=== PATIENT | female | born 1985 | race African-American/Black ===

== ENCOUNTER → 2019-12-04 | Outpatient (CLI) | payer OTHER ==
[2015-07-14 00:56] VITALS: BP 128/64
[2019-12-04 07:58] LABS: HEMATOCRIT 39.4 % (36.0-47.0); HEMOGLOBIN 13.1 g/dL (12.0-15.5); RED BLOOD COUNT 4.26 x10^6/uL (3.50-5.40); RED CELL DISTRIBUTION WIDTH 12.7 % (11.5-14.5); WHITE BLOOD COUNT 6.7 x10^3/uL (4.0-11.0)
[2019-12-04 08:31] LABS: ALBUMIN 3.6 g/dL (3.4-5.0); CALCIUM 8.8 mg/dL (8.5-10.1); CREATININE 0.9 mg/dL (0.6-1.0); GFR 85.7; POTASSIUM 3.7 mmol/L (3.5-5.1); TOTAL BILIRUBIN 0.6 mg/dL (0.2-1.0); TOTAL PROTEIN 7.2 g/dL (6.4-8.2)
[2019-12-04 08:32] LABS: CHOLESTEROL/HDL RATIO 2.8
[2019-12-04 08:47] LABS: FREE T4 0.99 ng/dL (0.76-1.46); THYROID STIM HORMONE (TSH) 1.663 uIU/mL (0.358-3.74)
== END | disposition home or self-care (01) ==
LOC: LAB 07:35
PROVIDERS: ATTEND Nurse Practitioner Family
DX: R07.9 Chest pain, unspecified (principal)
CPT/HCPCS: 36415; 80053; 80061; 82306; 83540; 83550; 84439; 84443; 85027

== ENCOUNTER → 2020-04-22 | Outpatient (CLI) | payer OTHER ==
[2015-07-14 00:56] VITALS: BP 128/64
--- NOTE | 2020-04-22 16:37 | RAD ---
INDICATION: 35 year-old female presents for follow-up of previously seen probably benign breast lesions. TECHNIQUE: Targeted high resolution sonography of the region of clinical concern was performed. COMPARISON: None FINDINGS: ULTRASOUND FINDINGS: Targeted ultrasound of the previously described probably benign finding was again performed. 9:00 position, 6 cm from the nipple: A 0.4 x 0.3 x 0.2 cm hypoechoic solid mass around/oval shape is seen. The previously seen 9:00 lesion 10 cm from the nipple is not definitively seen on this examination. 12:00 position, 1 cm from the nipple: A hypoechoic mass of circumscribed margins and round/oval shape is present, measuring 1.5 x 0.6 x 1.4 cm. This demonstrates internal homogenous echogenicity with a few small septations. This is similar in appearance to the mass seen on prior examination which was described at the 12:00 position, 10 cm from the nipple, which previously measured 1.5 x 0.5 x 1.4 cm. IMPRESSION: Probably benign finding. RECOMMENDATION: Recommend 12 month ultrasound and mammographic follow-up. BI-RADS 3: Probably Benign Electronically signed by: Carlos Enrique Christianson MD (04/22/2020 4:34 PM) [email or web address]
== END | disposition home or self-care (01) ==
LOC: US 14:42
PROVIDERS: ATTEND Nurse Practitioner Family
DX: N63.22 Unspecified lump in the left breast, upper inner quadrant (principal)
CPT/HCPCS: 76641

== ENCOUNTER → 2021-05-12 | Outpatient (CLI) | payer OTHER ==
[2015-07-14 00:56] VITALS: BP 128/64
--- NOTE | 2021-05-12 10:28 | RAD ---
PROCEDURE: MG DIGITAL BILAT DIAGNOSTIC MAMMO WITH DIMITRI, US BREAST BILAT HISTORY: The patient is 36 years old and is seen for Reason: lumpy breast / Spl. Instructions: / His tory: . COMPARISON: Ultrasound April 22, 2020 and September 11, 2019 as well as February 05, 2019. Mammogram May 30, 2018 TECHNIQUE: CC and MLO views of both breasts were obtained. Images were processed by the [employer] computer-aided detection system. Ultrasound the bilateral breasts. DENSITY: The breast parenchyma is extremely dense, which could obscure a lesion on mammography. FINDINGS: Left mammogram: Increased left upper outer breast mass measures 2.5 x 1.6 cm compared to 1.2 x 1.5 cm . Decreased medial breast mass measures 0.8 cm compared to 1.4 cm. Left ultrasound: Solid hypoechoic lesion within the left breast 9:00 position 4 cm from the nipple me asures 0.9 x 0.5 x 0.2 cm, similar compared to prior and decreased compared to 2019. Increased multil obulated solid and new cystic mass 12-1 position 3 cm from the nipple measures 2.8 x 1.2 cm compared to 1.5 x 0.6 cm previously. Finding may relate to interval fibroid cystic degeneration, given signifi cant increased size further evaluation was recommended. No pathologic axillary lymphadenopathy. Right mammogram: Asymmetry within the superior breast on MLO view, likely overlapping fibroglandular tissue as no correlate identified on ultrasound. No suspicious macrocalcification or architectural di stortion. Right ultrasound: No mass or cyst identified. No pathologic axillary lymphadenopathy. IMPRESSION: Increased lobulated cystic and solid mass within the left breast. Recommend ultrasound-guided biopsy. Results were discussed with the patient at length. Options for 6 month follow-up and biopsy were prov ided and risks and benefits were discussed. The patient stated she would rather biopsy the lesion at this point. The patient agreed with the plan. BI-RADS category 4 Findings suspicious for malignancy Our clinic nurse has been instructed to assist with communicating findings and recommendations to the patient's referring physician and in scheduling follow-up. Patient entered into a reminder system for annual screening mammogram. FOR INTERNAL CODING PURPOSES Critical result: Findings discussed with Paige Armstrong at 05/12/2021 10:15 AM. RESULT CODE: (C) Electronically signed by: Ishaan Solano DO (05/12/2021 10:25 AM) [email or web address]
== END ==
LOC: MAMMO 08:43
PROVIDERS: ATTEND Nurse Practitioner Family
DX: N60.02 Solitary cyst of left breast (principal); N63.20 Unspecified lump in the left breast, unspecified quadrant
CPT/HCPCS: 76641; 77066; G0279; 77062

== ENCOUNTER 2021-06-08 08:54 | Day surgery (SDC) | payer OTHER ==
[~2021-06-08] VITALS: Ht 154.9 cm; Wt 46.2 kg
[~2021-06-08 08:54] MED LIST: CHOL500050 PO; HYDROmorphone 2 MG/ML VIAL IVP PRN; IV RINGERS,LACTATED 1000ML 1,000 ML IV SCH; MORPHINE SULFATE 2 MG/ML INJ. IVP PRN; MULT-121 PO; PROCHLORPERAZINE 10 MG/2 ML VIAL. IVP PRN; ceFAZolin SODIUM IV Push 1 GM VIAL. IVP PRN; fentaNYL PF VIAL 100 MCG/2 ML VIAL IVP PRN
[2021-06-08] MEDS ORDERED: SEVOFLURANE 31 TO 60 MINUTES. IH ONE (09:16)
[2021-06-08] MEDS ORDERED: KETOROLAC 30 MG/ML VIAL. ONE (09:17)
[2021-06-08] MEDS ORDERED: MIDAZOLAM HCL/PF 2 MG/2 ML VIAL. ONE (09:17)
[2021-06-08] MEDS ORDERED: PROPOFOL 10 MG/ML (20ML) VIAL. IV ONE (09:17)
[2021-06-08] MEDS ORDERED: DEXAMETHASONE SOD PHOS 4 MG/ML VIAL ONE ×2 (09:17)
[2021-06-08] MEDS ORDERED: ONDANSETRON PF 4 MG/2 ML VIAL. ONE (09:17)
[2021-06-08] MEDS ORDERED: LIDOCAINE 2% PF 5 ML VIAL. ONE (09:18)
[2021-06-08 09:35] VITALS: BP 123/76
[2021-06-08] MEDS ORDERED: ACETAMINOPHEN 650 MG/20.3 ML SOLUTION. PO ONE (10:00)
[2021-06-08] MEDS ORDERED: BUPIVACAINE-EPI 0.25%-1:200000 MPF 30 ML VIAL. ONE (10:16)
--- NOTE | 2021-06-08 11:10 | PDOC4 ---
Operative Note Operative Note Date: June 08, 2021 1108 Preoperative diagnosis: Left breast mass Postoperative diagnosis: Same Procedure: Excisional biopsy of left breast mass Surgeon: Thierry Dictation: Patient is a 36-year-old female with a palpable mass in her left breast ultrasound shows abnormal architecture concerning recommending biopsy. Procedure of excisional biopsy was explained to the patient detail was benefits were also discussed including bleeding infection alternatives to this procedure also discussed with the patient who seemed to understand and gave a verbal written consent to have the procedure performed. Patient was taken to the operating room placed in the supine position general anesthesia was initiated on ce patient was sleeping intubated her left breast and chest were prepped and draped usual sterile fashion using ChloraPrep. Area over the mass was injected with quarter percent Marcaine with epinephrine incision made with a 10 blade scalpel is carried down through subcutaneous tissue using electrocautery right hemostasis mass was excised with electrocautery was noted there is quite a bit fluid expressed milky and consistency. Wound was closed in 2 layers of deep layer running 3-0 Vicryl and the skin was reapproximated for subcuticular Monocryl Mastisol Steri-Strips and island dressings were applied. Patient was awakened and extubated in the operating room taken to recovery in stable condition all sponge instrument needle counts listed as correct estimated blood loss 10 mL CANDACE PEREZ MD Jun 08, 2021 11:10
[2021-06-08] MEDS ORDERED: OXYC1TAB15 PO (11:16)
--- NOTE | 2021-06-08 11:19 | DISCH ---
DISCHARGE INSTRUCTIONS Condition on Discharge Condition on Discharge: Stable Activity After Discharge Activity Instructions for Disc: Avoid exertion Diet after Discharge Diet after Discharge: Regular Contacting the DRMatias after DC Call your doctor for: If your condition worsens Follow-Up Follow up with: Dr. Perez in 2 weeks CANDACE PEREZ MD Jun 08, 2021 11:19
[2021-06-08 11:46] VITALS: BP 114/70
--- NOTE | 2021-06-09 18:06 | PATHOLOGY ---
[facility] Accession Number: [id number] . 01 Material submitted: . breast - LEFT BREAST MASS. Modifiers: left . 01 Clinical history: . LEFT BREAST MASS EXCISIONAL BIOPSY LEFT BREAST LEFT BREAST LUMP . 02 Diagnosis: Segments (2) of breast tissue, left breast excisional biopsy: - Intraductal papilloma, with focal associated lobular secretory alteration and focal chronic inflammation. - Fibrocystic changes with the following components: - Stromal fibrosis. - Duct ectasia. - Cystic change. - Lobular secretory alteration, focal. - Chronic inflammation, focal. (DARWINM:fan; 06/09/2021) [facility] 06/09/2021 1722 Local . 02 Comment: There is no atypia or evidence of malignancy. (DARWINM:fan; 06/09/2021) . 02 Electronically signed: . Ulices Castillo MD, Pathologist NPI- [id number] . 01 Gross description: . The specimen is received in formalin, labeled "Smart, [place] L and breast mass". It consists of 2 lerner-yellow, regular fibroadipose soft tissue segments weighing 1 g and measuring 1.9 x 1.8 x 1.1 cm, and 4 g and measuring 2.7 x 2.4 x 1.5 cm. The smaller fragment is inked orange and the larger fragment is inked green. Sectioning reveals lerner-white fibrous, focally cystic cut surfaces. The specimen is 5% yellow fatty tissue and 95% white fibrous tissue. The specimen is entirely submitted as follows: A1-A2: Smaller fragment, entirely submitted A3: Larger fragment, one end, perpendicularly sectioned A4-A7: Larger fragment, mid sections A8: Larger fragment, opposite end, perpendicularly sectioned . The specimen is removed from the patient at 1030AM and placed in formalin at 1040AM on 06/08/2021. The specimen is removed from formalin at 1140pm on 06/08/2021. The specimen is in formalin for greater than 6 hours and less than 72 hours. (MRF; 06/08/2021) MFE/MFE 06/08/2021 1605 Local . 02 Pathologist provided ICD-10: D24.2, N60.32, N60.42, N61.0 . 02 CPT . 469528 Specimen Comment: A courtesy copy of this report has been sent to [phone], [phone] Specimen Comment: [id number] Specimen Comment: Report sent to / DR RODRIGUEZ Performed at: 01 [facility] [address], [place] [id number] MD Ra Taylor MD Phone: [phone] Performed at: 02 [facility] [address] [place], [place] [id number] MD Ulices Castillo MD Phone: [phone]
== END 2021-06-08 12:15 | disposition home or self-care (01) ==
LOC: SURG 08:54
PROVIDERS: ATTEND Surgery
DX: N63.20 Unspecified lump in the left breast, unspecified quadrant (principal); D24.2 Benign neoplasm of left breast; N60.32 Fibrosclerosis of left breast; N60.42 Mammary duct ectasia of left breast; N61.0 Mastitis without abscess; F41.9 Anxiety disorder, unspecified; Z88.1 Allergy status to other antibiotic agents; Z88.8 Allergy status to other drugs, medicaments and biological substances; Z79.899 Other long term (current) drug therapy; Z98.890 Other specified postprocedural states; Z20.822 Contact with and (suspected) exposure to COVID-19
CPT/HCPCS: 19120; 81025; 87426; A4364; A4930; J0690; J1100; J1885; J2250; J2405; J2704; J3490; A4452